=== PATIENT | male | born 1995 | race Caucasian/White ===

== ENCOUNTER 2017-01-01 17:41 | Emergency (ER) | payer BC ==
[2017-01-01 17:51] VITALS: BP 122/63
--- NOTE | 2017-01-01 18:25 | UC ---
Throat Pain/Nasal Jann HPI - HPI Summary HPI Summary: sinus pain and pressure x 7 days , + pnd, nasal congestion, no fever, no chills, no cough + left eye redness and discharge x 1 days, no change in vision, no eye pain - History of Current Complaint Chief Complaint: UCEye Stated Complaint: LEFT EYE Time Seen by Provider: 01/01/17 18:16 Hx Obtained From: Patient Onset/Duration: Gradual Onset, Lasting Days - 7, Still Present Severity: Moderate Cough: None Associated Signs & Symptoms: Positive: Sinus Discomfort, Nasal Discharge. Negative: Fever - Allergies/Home Medications Allergies/Adverse Reactions: Allergies Allergy/AdvReac Type Severity Reaction Status Date / Time Penicillins Allergy Hives Verified 01/01/17 17:51 Home Medications: Home Medications Ibuprofen TAB* [Advil TAB*] 400 mg PO Q6H PRN 01/01/17 [History Confirmed ] Multiple Vitamin [Multiple Vitamins] 1 tab PO DAILY 01/01/17 [History Confirmed 01/01/17] guaiFENesin ER TAB [Mucinex*] 600 mg PO BID PRN 01/01/17 [History Confirmed ] PMH/Surg Hx/FS Hx/Imm Hx Previously Healthy: Yes - Surgical History Surgical History: None - Family History Known Family History: Negative: Diabetes - Social History Alcohol Use: Occasionally Substance Use Type: None Smoking Status (MU): Never Smoked Tobacco Type: Smokeless Tobacco Amount Used/How Often: A COUPLE TIMES Review of Systems Constitutional: Negative Skin: Negative Eyes: Drainage - left eye, Eye Redness - left eye ENT: Nasal Discharge Respiratory: Cough Cardiovascular: Negative Gastrointestinal: Negative Genitourinary: Negative All Other Systems Reviewed And Are Negative: Yes Physical Exam Triage Information Reviewed: Yes Appearance: Well-Appearing, No Pain Distress, Well-Nourished Vital Signs: Initial Vital Signs Temp 99 F 01/01/17 17:46 Pulse 85 01/01/17 17:46 Resp 16 01/01/17 17:46 BP 122/63 01/01/17 17:46 Pulse Ox 96 01/01/17 17:46 Vital Signs Reviewed: Yes Eyes: Positive: Conjunctiva Inflamed - left eye, Discharge - left eye ENT: Positive: Normal ENT inspection, Hearing grossly normal, Pharyngeal erythema, Nasal congestion, Nasal drainage, TMs normal Neck exam: Normal Neck: Positive: Supple, Nontender, No Lymphadenopathy Respiratory: Positive: Chest non-tender, Lungs clear, Normal breath sounds, No respiratory distress Cardiovascular: Positive: RRR, No Murmur, Pulses Normal Skin Exam: Normal Throat Pain/Nasal Course/Dx - Differential Dx/Diagnosis Provider Diagnoses: sinusitis. conjunctivitis Discharge - Discharge Plan Condition: Stable Disposition: HOME Prescriptions: Azithromycin TAB* [Zithromax TAB (Z-GERBER) 250 mg #6 tabs] 2 tab PO .TODAY, THEN 1 DAILY #1 gerber Tobramycin 0.3% OPHTH.ALBERTO* 1 drop LEFT EYE Q4H #1 btl Patient Education Materials: Sinusitis (ED), Conjunctivitis (ED) Additional Instructions: follow up as needed
== END 2017-01-01 18:37 | disposition home or self-care (01) ==
LOC: UCCORT 17:41
DX: J32.9 Chronic sinusitis, unspecified (principal); H10.9 Unspecified conjunctivitis; Z88.0 Allergy status to penicillin
CPT/HCPCS: 99202; G0463

== ENCOUNTER 2018-09-26 16:38 | Emergency (ER) | payer BC ==
[2018-09-26 16:58] VITALS: BP 151/75
[2018-09-26] MEDS ORDERED: Fluorescein Sodium TOPICAL* 1 MG TEST STRIP OPHTHALMIC ONE (17:17)
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
[2018-09-26] MEDS ORDERED: Erythromycin OPTH OINT* APPLIC OINT LEFT EYE ONE (17:38)
== END 2018-09-26 17:52 | disposition home or self-care (01) ==
LOC: UCCORT 16:38
DX: S05.02XA Injury of conjunctiva and corneal abrasion without foreign body, left eye, initial encounter (principal); Z88.0 Allergy status to penicillin; Y04.0XXA Assault by unarmed brawl or fight, initial encounter; Y92.9 Unspecified place or not applicable
CPT/HCPCS: 99212; A9270-GY; G0463